=== PATIENT | female | born 1990 | race Caucasian/White ===

== ENCOUNTER 2023-01-14 13:05 | Emergency (ER) | payer SELFPAY ==
[~2023-01-14] VITALS: Ht 157.5 cm; Wt 63.0 kg
[2023-01-14 13:07] VITALS: BP 120/79; PULSE 82; RESP 16; TEMP 98.7; O2SAT 100
== END 2023-01-14 16:31 | disposition home or self-care (01) ==
LOC: ER 13:05
DX: R68.89 Other general symptoms and signs (principal); F12.10 Cannabis abuse, uncomplicated
CPT/HCPCS: 99283